=== PATIENT | male | born 1985 | race Caucasian/White ===

== ENCOUNTER 2022-09-18 23:28 | Emergency (ER) | payer MEDICARE, MEDICAID, SELFPAY ==
[2022-09-18 23:29] VITALS: BP 140/76; PULSE 100; RESP 14; O2SAT 99; BMI 24.3
--- NOTE | 2022-09-18 23:56 | ED_ITS ---
HPI - Wound/Laceration General: Chief Complaint: Wound/Laceration Stated Complaint: laceration to left arm Time Seen by Provider: 09/18/22 23:31 Source: patient Mode of arrival: ambulatory Limitations: no limitations History of Present Illness: 36-year-old male who states he has anxiety attacks and states when he does have these anxiety attacks he gets himself he adamantly denies being suicidal or homicidal he states he is having Sondra did not have his medicine so he lacerated his left arm he does have a laceration to the dorsal portion of his forearm rates his pain a 5 out of 10 unsure when his last tetanus was. Associated symptoms: Denies chills, fever(s), nausea or vomiting Review of Systems Const: Denies: fever(s), chills, body aches or change in appetite Eyes: Denies: blurry vision or eye discomfort ENMT: Denies: throat pain or dental pain Card: Denies: chest pain Resp: Denies: dyspnea GI: Denies: abdominal pain, nausea, vomiting or diarrhea : Denies: dysuria Musc: Denies: neck pain or back pain Skin/Breast: Denies: rash Neuro: Denies: headache(s) Psych: Denies: depression Pepe/Lymph: Denies: easy bruising All/Imm: Denies: urticaria PFSH ED PFSH: Medical History (Updated 09/18/22 @ 23:59 by Gordon Mooney MD) Anxiety Social History (Updated 09/18/22 @ 23:57 by Gordon Mooney MD) Substance/Drug Use: unknown Physical Exam Const: COMMON NORMALS: no acute distress and patient oriented x3 HENMT: COMMON NORMALS: normocephalic and atraumatic HEAD & SCALP: normocephalic and atraumatic Eye: COMMON NORMALS: conjunctivae normal CONJUNCTIVA: Yes conjunctivae normal Neck/C-Spine: COMMON NORMALS: supple Chest: COMMONS NORMALS: normal inspection of the chest Resp: COMMON NORMALS: normal respiratory effort Cardio: COMMON NORMALS: regular rate RATE: regular rate GI: COMMON NORMALS: Soft to palpation PALPATION: Yes Soft to palpation Extremity: OTHER: 6 mm laceration to dorsum the forearm does have a partial tendon laceration no decreased sensation he has good extension of his wrist has some decreased strength in extension to his left thumb Neuro: COMMON NORMALS: patient oriented x3 Psych: COMMON NORMALS: mental status grossly normal Skin: COMMON NORMALS: no rashes or lesions noted GENERAL SKIN EXAM: no rashes or lesions noted Procedures Laceration Laceration 1: Site: upper extremity Side (If applicable): left Size (cm): 5 Description: linear Depth: simple, single layer Local Anesthetic: lidocaine 1% Amount of anesthesia used (mL): 10 Pre-repair: wound explored and irrigated extensively Skin layer closed with: nylon Size (cm): 4-0 Number of sutures: 5 Course Vital Signs: Vital signs: Vital Signs Pulse Rate 100 09/18/22 23:29 Respiratory Rate 14 09/18/22 23:29 Blood Pressure 140/76 09/18/22 23:29 Pulse Oximetry 99 09/18/22 23:29 Oxygen Delivery Me thod 09/18/22 23:29 MDM - Wound/Laceration Medical Decision Making Patient presents with a laceration to his left forearm with a partial tendon laceration as well. I did speak to Dr. Michelle patient's wound was sutured he is given IV antibiotics patient placed in a volar splint with extension we will follow-up with Dr. Michelle tomorrow informed patient is very important that he follows up as he can get his tendon repair. He is not suicidal he had cut himself due to anxiety I spoke to case with Dr. Somers who agrees patient is stable for discharge as well. Discharge Plan Discharge Patient Disposition: Home Clinical Impression: Laceration Discharge Orders: Discharge ED (Routine); Ordered 09/18/22 Ordered By: Gordon Mooney Referrals: Rachel Hamilton APN [Primary Care Provider] - Bernard Michelle DO [Physician] - 1-3 days Discharge Diet: Advance as tolerated Discharge Activity: Resume usual activity Patient Instructions: Laceration (ED) Activity Restrictions/Additional Instructions: FOLLOW UP WITH DR. MICHELLE TOMORROW Coding Level of Care Code ED [employer] Supervisor for Chg Fwd Exam Comprehensive
[2022-09-18] MEDS: tetanus-dipt-pertussis 0.5 mL SDV IM (23:58)
[2022-09-19] MEDS: lidocaine 1% INJ 10 mL (per mL) 20 ML INJECTION (00:01)
[2022-09-19] MEDS: ceFAZolin 2,000 mg SDV 2000 MG IVP (00:06)
[2022-09-19 01:51] VITALS: BP 133/86; PULSE 95; RESP 16; O2SAT 95
== END 2022-09-19 00:25 | disposition home or self-care (01) ==
PROVIDERS: Emergency Provider Emergency Medicine; PCP Nurse Practitioner Family
DX: S51.812A Laceration without foreign body of left forearm, initial encounter (principal); X78.9XXA Intentional self-harm by unspecified sharp object, initial encounter; Z23 Encounter for immunization
CPT/HCPCS: 12002; 90471; 90715; 96374; 99284; A4590; J0690

== ENCOUNTER → 2022-09-23 13:50 | Outpatient (BNVA) | payer MEDICARE, MEDICAID, SELFPAY | PROVIDERS: PCP Nurse Practitioner Family; Referring Provider Emergency Medicine; Visit Provider Student in an Organized Health Care Education/Training Program | DX: S56.522A Laceration of other extensor muscle, fascia and tendon at forearm level, left arm, initial encounter (principal); S51.802A Unspecified open wound of left forearm, initial encounter; W26.0XXA Contact with knife, initial encounter | CPT/HCPCS: 73090; 99204 ==

== ENCOUNTER 2022-09-25 08:07 | Day surgery (SDC) | payer MEDICARE, MEDICAID, SELFPAY ==
[2022-09-25] VITALS (13 sets, daily range): BP systolic 110–151; BP diastolic 66–92; PULSE 94–112; RESP 12–19; TEMP 36.4–37.3; O2SAT 91–100
--- NOTE | 2022-09-25 09:06 | ANES.PREANE2 ---
Pre-Anesthetic Assessment Height/Weight: Height 1.73 m Weight 72.575 kg Temp Pulse Resp BP Pulse Ox O2 Del Method 99.2 F 94 16 113/92 97 09/25/22 08:36 09/25/22 08:36 09/25/22 08:36 09/25/22 08:36 09/25/22 08:36 09/25/22 08:38 Preop Diagnosis: Left forearm laceration with tendon involvement Operation Date: 09/25/22 09:55 Proposed Procedures p left forearm irrigation and debridement tendon repair 98168,S59.912A(Left) - Bernard Michelle DO s Tendon Repair Hand(Left) - Bernard Michelle DO Familial anesthetic complications: None Was Beta Smiley taken within 24 hours: N/A Was Clonidine taken within 24 hours: N/A Last intake: Intake Last Liquid Date 09/24/22 Last Liquid Time 21:00 Last Solid Date 09/24/22 Last Solid Time 21:00 Social Tobacco and No alcohol Exam alert, oriented x 3, clear to auscultation bilaterally and regular rate & rhythm Airway Mallampati: Class IV Dentition: other (no teeth) Neuropsych Depression Anesthetic Plan ASA status: 2 Anesthesia: General Risk of > 500 ml blood loss (7ml/kg in children): No Medications/Allergies Home Medications Medication Instructions Recorded Confirmed Last Taken Type multivit with minerals-folic 0.4 tab PO DAILY 09/23/22 09/25/22 09/24/22 History acid-lycopene 0.4 mg-600 mcg tablet venlafaxine 150 mg 150 mg PO DAILY 09/23/22 09/24/22 09/24/22 History capsule,extended release 24 hr hydrocodone 5 mg-acetaminophen 325 1 tab PO Q6H PRN pain 7 days #28 09/25/22 Unknown Rx mg tablet tabs Allergies Allergy/AdvReac Type Severity Reaction Status Date / Time amoxicillin Allergy ALGY-Rash Verified 09/24/22 09:36 fentanyl Allergy ADR-Anxiety Verified 09/25/22 08:28 Penicillins Allergy ALGY-Rash Verified 09/24/22 09:36 [facility] Anesthesia Medical History (Updated 09/24/22 @ 22:59 by Bernard Michelle DO) Anxiety Extensor tendon laceration of forearm with open wound Data Anesthesia Cardiac Studies: No Data to Display
[2022-09-25] MEDS: sodium chloride 0.9% 1,000 ML 30 ML IV (09:15)
[2022-09-25] MEDS: midazolam 1 mg/mL INJ 2 mL 2 MG IVP ×2 (09:20→13:19)
[2022-09-25] MEDS: ketorolac 30 mg/mL INJ IVP (09:21)
[2022-09-25] MEDS: acetaminophen 1,000 MG/100 ML PIGGYBACK 400 MG IV (09:21)
--- NOTE | 2022-09-25 10:04 | W.PM.OPSUD ---
Surgery/Procedure H&P Update DATE OF PROCEDURE: September 25, 2022 DATE H&P PERFORMED: 09/23/22 CHANGES TO PREVIOUS DOCUMENTATION: None PREOP DIAGNOSIS: Left forearm laceration with tendon involvement PRIMARY INDICATION FOR PROCEDURE: Left zone 8 dorsal forearm laceration with tendon involvement PLANNED PROCEDURE: Operation Date: 09/25/22 09:55 Proposed Procedures p left forearm irrigation and debridement tendon repair 34725,S59.912A(Left) - Bernard Michelle DO s Tendon Repair Hand(Left) - Bernard Michelle DO
[2022-09-25] MEDS: clindamycin 600 MG/50 ML PREMIX 100 MG IV (10:05)
--- NOTE | 2022-09-25 13:25 | PC.NURSE ---
pt awoke combative. Airway was removed. Dr. Bolton @ bedside. Versed given per order. Patient resting
--- NOTE | 2022-09-25 13:27 | P.PCN_ITS ---
PACU note Narrative: Patient taken to PACU in stable condition recovering well. Splint on in place clean dry and intact. Patient able to subtly wiggle fingers. Fingertips warm well perfused. Volar blocking splint on in place keeping wrist and fingers in extension. Wrist capillary refill less than 2 seconds. Sensat ion tact light touch distally. Exam: awake Disposition: discharged
--- NOTE | 2022-09-25 13:27 | P.OP_ITS ---
Brief Operative Note Date of procedure: 09/29/22 Pre-op diagnosis: Zone 8 extensor tendon laceration mid to distal forearm Post-op diagnosis: same (Tendon injuries BR, ECRL, APL, EPB, EPL, (EDC- index,middle,ring,small), EIP, EDM) Procedure Done: Left forearm irrigation and debridement with exploration Left forearm zone 8 extensor tendons repair to brachioradialis, abductor pollicis longus, extensor pollicis brevis, extensor carpi radialis longus, extensor pollicis longus, extensor indicis proprius, extensor digitorum communis to the index finger, middle finger, ring finger, small finger, extensor digiti minimi.(11 tendon repairs) Surgeon: Bernard Michelle Estimated blood loss (mL): 10 Complications: none Post-op Plan: Patient taken to PACU in stable condition recovering well. Splint on in place clean dry and intact. Patient received appropriate discharge instructions as well as pain medication postoperatively. We will follow zone 8 extensor tendon protocol with OT hand therapy. And placed in a volar blocking splint with fingers as well as wrist in extension to protect the repairs. We will see patient in office in 2 weeks. Patient understands and agrees with current plan. All questions answered. Condition: stable Disposition: same day Coding Level of Care Code Acute Code for Steven Ro
--- NOTE | 2022-09-25 13:27 | PM.OP ---
Operative Report Date of procedure: September 25, 2022 Pre-op diagnosis: Preop Diagnosis Left forearm laceration with tendon involvement Post-op diagnosis: Complex left volar forearm laceration zone 8 with extensor tendon injuries to brachioradialis, abductor pollicis longus, extensor pollicis brevis, extensor carpi radialis longus, extensor pollicis longus, extensor indicis proprius, extensor digitorum communis to the index finger, middle finger, ring finger, small finger, extensor digiti minimi Procedure done: Left forearm irrigation and debridement with exploration Left forearm zone 8 extensor tendons repair to brachioradialis, abductor pollicis longus, extensor pollicis brevis, extensor carpi radialis longus, extensor pollicis longus, extensor indicis proprius, extensor digitorum communis to the index finger, middle finger, ring finger, small finger, extensor digiti minimi.(11 tendon repairs) Implants: Arthrex 2-0 FiberWire suture 3-0 Ethibond suture 5-0 Prolene for epitendinous suture Surgeon: Bernard Michelle DO Estimated blood loss: 10mL 140min IV fluids: 1000 mL Complications: None Findings: See operative report narrative Condition: stable Disposition: same day Brief History: Patient is a 36-year-old male who sustained a self-inflicted laceration over zone 8 at the mid substance to distal aspect of the left forearm. He was seen evaluated in the emergency department with a deep laceration which was irrigated at bedside and concern for tendon involvement this was closed primarily and subsequently referred to my office for an outpatient follow-up has been in antibiotics. Received antibiotics and tetanus in the emergency department. Patient states he is right-hand dominant. Saw patient in the office and he was noted to have extensor tendon lag of the left ring finger as well as significant weakness of the thumb he was able to slightly extend all 5 of his digits but definitely had noticeable weakness as well as with the wrist extension and radial deviation. At this point given the concern for tendon involvement from the emergency department as well as his examination recommended left forearm irrigation and debridement with wound exploration and repair of tendons. His sensation was intact to light touch distally with no concern for injury to superficial radial nerve branches. We talked about the risk benefits complications alternatives of surgical nonsurgical treatment options. Understanding these risks he agrees to proceed with surgical intervention. All questions answered at this time. Consent obtained in the office. Patient has not acutely suicidal and states that he just had anxiety and needed stress relief which she had previous signs of cutting noted. All questions answered at this time. He does understand the potential severity of his injury as well as postoperative recovery may include if tendons need to be repaired. Procedure: Patient was seen and evaluated in the preoperative holding area. Consent was signed and reviewed with patient. Correct extremity was marked. Patient was then seen evaluated by the anesthesia department. Once appropriately cleared for surgery was then taken back to the operative suite. Patient was then taken to the operative suite transported onto the OR table. Patient underwent anesthesia per the anesthesia department the left upper extremity was then placed onto an armboard and nonsterile tourniquet applied to the left upper arm. Patient's left upper extremity was then prepped and draped in standard orthopedic fashion. Final timeout performed. Patient received appropriate preoperative antibiotics. Esmarch tourniquet was used exsanguinate the left upper extremity to 250 mmHg. Patient's previous oblique incision to the mid substance of the forearm extending the distal substance of the forearm in zone 8 was then reopened up with scalpel incision removing the sutures. I then extended the incision both proximally and distally in longitudinal fashion to the great full-thickness skin flaps which were then sutured back to have an appropriate retraction and full visualization of the extent of the laceration and tendon injuries. At this point time prior to exploration I thoroughly irrigated the wound bed of all debridement and debrided skin subcutaneous tissue fascia as well as tendons and muscle bellies. Total area of debridement was 7 cm x 9 cm x 3 cm. Once again this was debrided of all devitalized tissue with a sharp scalpel excision and rongeur of subcutaneous fat skin fascia muscle belly and tendon. Once irrigation and debridement was performed to its entirety we then were able to evaluate and explore each of patient's dorsal forearm tendon anatomy. This laceration was right just distal to the musculotendinous junction with significant tendinous injury. At this point as each tendon was explored starting from radial working my way to the ulnar I subsequently identified each tendon and then repaired in appropriate fashion. I first identified the brachial radialis tendon which 80% of the tendon was lacerated. At this point time just to augment for stronger fixation and I knew that I did not have to worry about keeping this lower profile as I would have the palm of the hand and no paula system was needed obviously on the dorsal forearm I subsequently placed 4 core strand sutures as well as augmented with an epitendinous stitch all core strands were performed with 2?oh Arthrex FiberWire. This completed my repair of the brachial radialis tendon. Next I then identified the APL and EPB tendons which were lacerated 100%. I then subsequently holding the wrist in extension as well as the thumb reapproximated the tendons and performed a standard modified Hammond four core strand sutures which reapproximated the APL tendon. Once this was done I then performed an epitendinous suture with 5-0 Prolene. This completed the APL tendon repair. Next in standard fashion as previous perform a repair with 4 core strand sutures and epitendinous stitch to the EPB tendon. Identified the ECRB which was found to be intact with no laceration. Next the ECRL was found to have 100% laceration which I subsequently again performed a 4 core strand suture repair with an epitendinous stitch for the ECRL tendon. Next I dissected out the EPL tendon and this was identified to have 70% laceration which was then subsequently attempted a core repair however this was unsuccessful given there was 2 segmented lacerations of roughly 75% which was unable to reapproximate in a core strand fashion. As a result I then utilized the epitendinous suture and then tubularized the tendon for my repair. Next I then identified the EIP tendon which was 100% lacerated then subsequently utilized at this point the tendons were very small in nature in the 2-0 FiberWire suture was too bulky as a result I switched to a 3-0 Ethibond suture and could only perform a 2 core stitch in horizontal mattress fashion. I subsequently performed this repair of the EIP tendon and then utilized an epitendinous suture to augment strength. Next I identified the EDC tendons which noticeably had the EDC to the index finger which was 60% lacerated I then subsequently just performed an epitendinous stitch. It was clear it was this tendon that needed in patient's other finger extension given the extension through the juncture a tendon a. The middle finger ring finger and small finger were all lacerated 100% and I subsequently performed a 2 core strand suture with 3-0 Ethibond of each of these tendons and this was reinforced with an epitendinous stitch. Finally identified the EDM and this was then reapproximated with 3-0 Ethibond suture in an epitendinous stitch. This completed the repair of all the tendons which once again was APL, EPB, BR, ECRL, EPL, EDC to index middle ring and small, EIP, EDM. The ECU and ECRB were the only tendons that were not involved. At this point the EDC to the index that it only had a partial laceration did have slight laxity given to order to perform the repair there was slight shortening of the tendons. In order to create an appropriate tenodesis effect I then tenodesed the tendon utilizing an Allis clamp with a subtle twist to create a small ball and have appropriate tension and cascade of all of the digits. This was then held with the wrist in extension and the thumb in extension and abduction as well as the index through small fingers. This was held by my assistant import manager while the tourniquet was then deflated. Hemostasis was satisfactory. I then subsequently closed the incision in layered fashion with interrupted 3-0 Vicryl suture in interrupted mattress suture with nylon stitches. Patient tolerated procedure without complications. He was then dressed with Xeroform 4 x 4's ABD Curlex and a soft roll. A volar blocking splint with with holding the fingers and wrist and thumb in extension was then performed and held until the Ortho-Glass was set. Patient was then awakened from anesthesia and taken to PACU in stable condition. Patient recovering well. Disposition: Patient taken to PACU in stable condition recovering well. Volar blocking splint on in place to protect tendon that were repaired. Patient received appropriate discharge instruction as well as pain medication postoperative antibiotics for infection prophylaxis. Understands to be nonweightbearing and the importance of following postoperative tendon repair protocol. See patient in the office in 2 weeks. Patient understands agrees with current plan. All questions answered.
--- NOTE | 2022-09-25 13:37 | ANE.PACU2 ---
Inpatient post-anesthesia follow up: Airway intact: Yes Vital signs: Temperature 97.5 F Pulse Rate 112 Respiratory Rate 12 Blood Pressure 140/75 Pulse Oximetry 91 Oxygen Delivery Me thod Room Air Oxygen Flow Rate 8 Fraction of Inspir ed Oxygen Hydration adequate: Yes Nausea and vomiting: No Pain level: 1 Mental status: Baseline
--- NOTE | 2022-09-25 14:21 | PC.NURSE ---
Per Dr. Michelle's request, cancel hydrocodone RX @ [facility] pharmacy, gave verbal to Daniel. Pt requested RX be sent to [facility] instead.
== END 2022-09-25 15:10 | disposition home or self-care (01) ==
PROVIDERS: PCP Nurse Practitioner Family; Visit Provider Student in an Organized Health Care Education/Training Program
PROC: (CPT 25270; principal; 2022-09-25 09:45)
PROC: (CPT 25270; 2022-09-25 09:45)
DX: S56.522A Laceration of other extensor muscle, fascia and tendon at forearm level, left arm, initial encounter (principal); X78.1XXA Intentional self-harm by knife, initial encounter
CPT/HCPCS: 25270 ×6; 26418 ×5; C1713; J0131; J1885; J2250; J2704; J3010; J3490; J7030

== ENCOUNTER → 2022-10-07 07:28 | Outpatient (BNVA) | payer MEDICARE, MEDICAID, SELFPAY | PROVIDERS: PCP Nurse Practitioner Family; Visit Provider Student in an Organized Health Care Education/Training Program | DX: S56.522A Laceration of other extensor muscle, fascia and tendon at forearm level, left arm, initial encounter (principal); S51.802A Unspecified open wound of left forearm, initial encounter; X58.XXXA Exposure to other specified factors, initial encounter | CPT/HCPCS: 99024 ==

== ENCOUNTER 2022-10-22 06:00 | Outpatient (RCR) | payer MEDICARE, MEDICAID, SELFPAY | END 2022-11-12 23:59 | disposition home or self-care (01) | LOC: MOT 06:00 | PROVIDERS: PCP Nurse Practitioner Family; Visit Provider Student in an Organized Health Care Education/Training Program | DX: Z47.89 Encounter for other orthopedic aftercare (principal) | CPT/HCPCS: 97110; 97140; 97166; L3906 ==

== ENCOUNTER 2022-11-13 06:00 | Outpatient (RCR) | payer MEDICARE, MEDICAID, SELFPAY | END 2022-12-13 23:59 | disposition home or self-care (01) | LOC: MOT 06:00 | PROVIDERS: PCP Nurse Practitioner Family; Visit Provider Student in an Organized Health Care Education/Training Program | DX: Z47.89 Encounter for other orthopedic aftercare (principal) | CPT/HCPCS: 97110; 97140 ==

== ENCOUNTER → 2022-11-18 09:23 | Outpatient (BNVA) | payer MEDICARE, MEDICAID, SELFPAY | PROVIDERS: PCP Nurse Practitioner Family; Visit Provider Student in an Organized Health Care Education/Training Program | DX: Z47.89 Encounter for other orthopedic aftercare (principal) | CPT/HCPCS: 99024 ==